=== PATIENT | female | born 1965 | race Caucasian/White ===

== ENCOUNTER 2019-03-21 08:06 | Day surgery (SDC) | payer OTHER ==
[~2019-03-21 08:06] MED LIST: LIDOCAINE HCL 1% MPF 30 SOL ONE; PROPOFOL 500 MG/50 ML EMU IV ONE
[2019-03-21 09:55] VITALS: BP 120/80; PULSE 82; RESP 18; TEMP 97.6; O2SAT 98
== END 2019-03-21 10:10 | disposition home or self-care (01) | DRG 951 ==
LOC: SURG 08:06
PROVIDERS: ATTEND Surgery
DX: Z12.11 Encounter for screening for malignant neoplasm of colon (principal); D12.2 Benign neoplasm of ascending colon; K63.5 Polyp of colon
CPT/HCPCS: 99001; J2001; J2704